=== PATIENT | male | born 1970 | race Caucasian/White ===

== ENCOUNTER 2021-12-01 12:33 | Emergency (ER) | payer SELFPAY ==
--- NOTE | ~2021-12-01 | CT_ITS ---
EXAMINATION: CT brain wo con DATE: 12/01/2021 13:27 INDICATION: Altered mental status. TECHNIQUE: Computed tomography (CT) of the head was performed without intravenous contrast. The mA wa s adjusted according to patient size. Iterative reconstruction technique was employed. The dose-lengt h product was 908.00 mGy-cm. COMPARISON: None FINDINGS: There is no intracranial hemorrhage, acute infarction, or abnormal intracranial mass lesion . The ventricles are normal in size. The orbits are normal. There is mild mucosal thickening in the p aranasal sinuses. There is a reconstruction plate with screws at left inferior orbital rim. The masto id air cells are normal. IMPRESSION: 1. Normal brain. Reviewed, dictated and finalized at location A. IMPRESSION: 1. Normal brain.
[2021-12-01 12:42] VITALS: BP 142/90; PULSE 92; RESP 20; TEMP 36.7; O2SAT 99
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
[2021-12-01 13:12] LABS: Basophils Absolute Auto 0.1 K/mm3 (0.0-0.1); Basophils Percent Auto 0.4 % (0.2-1.2); Eosinophils Absolute Auto 0.1 K/mm3 (0-0.3); Eosinophils Percent Auto 0.5 % (0-4.4); Hematocrit 37.7 % (42.0-52.0); Immature Granulocyte Absolute 0.02 K/mm3 (0.00-0.031); Immature Granulocyte Percent A 0.2 % (0-0.5); Lymphocytes Absolute Auto 1.57 K/mm3 (0.9-3.2); Lymphocytes Percent Auto 12.1 % (18.3-44.2); Mean Corpuscular HGB Conc 34.5 g/dl (32-36); Mean Corpuscular Volume 87.1 fl (80-100); Mean Platelet Volume 9.4 fl (7.4-10.4); Monocytes Absolute Auto 1.3 K/mm3 (0.1-0.6); Monocytes Percent Auto 10.1 % (2.6-8.5); Neutrophils Percent Auto 76.7 % (45.5-73.1); Platelet Count Result 278 k/mm3 (150-375); Red Blood Count 4.33 M/mm3 (4.6-6.20); Red Cell Distribution Width 12.3 % (11.5-14.5)
[2021-12-01 13:16] LABS: Appearance Urine Clear (Clear); Bilirubin Urine Negative (Negative); Blood Urine 2+ (Negative); Color Urine Yellow (Yellow); Glucose Urine UA Negative (Negative); Ketones Urine Negative (Negative); Leukocyte Esterase Ur Negative LEU/UL (Negative); Nitrate Urine Negative (Negative); Protein Urine 1+ mg/dL (Negative); Specific Grav Ur >= 1.030 (1.001-1.035); Urobilinogen Urine 0.2 mg/dL (<2.0); pH Urine 5.5 (5.0-9.0)
[2021-12-01 13:18] LABS: Add Urine Microscopic? YES; Mucus Urine Few /lpf; Squamous Epithelial Cell Urine Rare /hpf (Few)
[2021-12-01 13:22] LABS: Ethanol < 10 mg/dL (<10)
[2021-12-01 13:23] LABS: Alanine Aminotransferase 27 U/L (6-50); Albumin Level 4.9 g/dL (3.5-5.1); Alkaline Phosphatase 75 U/L (38-126); Anion Gap 13 mmol/L (8-16); Aspartate Amino Transferase 46 U/L (17-59); Bilirubin,Total 1.1 mg/dL (0.2-1.3); Blood Urea Nitrogen 38 mg/dL (9-20); Calcium 9.6 mg/dL (8.4-10.2); Carbon Dioxide 21 mmol/L (22-30); Chloride 101 mmol/L (98-107); Estimated Glomerular Filt Rate > 60; Glucose 132 mg/dL (65-110); Sodium 135 mmol/L (137-145)
[2021-12-01 13:42] LABS: Amphetamine Screen Urine Negative (Negative); Barbiturate Screen Urine Negative (Negative); Benzodiazepines Screen Urine Negative (Negative); Cannabinoid Screen Urine Negative (Negative); Cocaine Screen Urine Negative (Negative); Methadone Screen Urine Negative (Negative); Opiate Screen Urine Negative (Negative); Phencyclidine Screen Urine Negative (Negative)
[2021-12-01 15:19] LABS: SARS-CoV-2 RNA PCR Negative
[2021-12-01] MEDS: ACETAMINOPHEN 325 MG TABLET 650 MG PO (16:57)
[2021-12-01] MEDS: HALOPERIDOL LACTATE 5 MG/ML VIAL IM (18:10)
--- NOTE | 2021-12-01 18:55 | PC.NURSE ---
patient yelling and throwing things in room. Dr. Ken aware and new orders received
[2021-12-01] MEDS: LORazepam INJ (*CRX) 2 MG/ML VIAL IM (19:16)
--- NOTE | 2021-12-01 19:19 | PC.NURSE ---
Pt currently in ED Room 11 with security present outside room. Pt has thrown his pudding and other snacks, and removed all linens from his stretcher. Has been medicated by staff x 2 since 1800. Presently up and walking around inside ED Room. Per EDP Annia Ken, pt is involuntary and sitter is needed for elopement risk. Security utilized at this time.
--- NOTE | 2021-12-01 20:19 | PC.NURSE ---
Pt currently resting in ED15 with eyes closed. Resps even, nonlabored, regular. Appears in no distress.
--- NOTE | 2021-12-01 20:26 | PC.NURSE ---
received report from DASHA Benitez
[2021-12-02 04:09] VITALS: BP 103/59; PULSE 79; RESP 18; TEMP 36.3; O2SAT 96
--- NOTE | 2021-12-02 04:10 | PC.NURSE ---
assumed care of pt. Pt resting on stretcher. Vital signs taken, pt cooperative and asking for a drink. Pt pleasant and thankful for drink.
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
--- NOTE | 2021-12-02 09:05 | PC.NURSE ---
Aydee with Crisis called to let us know that they are actively looking for placement.
[2021-12-02] MEDS: NICOTINE (*PBKC) 21 MG PATCH 1 PATCH TRANSDERM (11:10)
--- NOTE | 2021-12-02 13:14 | PC.NURSE ---
[facility] has a bed and will accept once a covid result is faxed to them. This rn faxed covid result at this time and will await a bed assignment and accepting
[2021-12-02 14:11] VITALS: BP 119/71; PULSE 90; RESP 20; TEMP 36.2; O2SAT 99
== END 2021-12-02 16:38 ==
PROVIDERS: Emergency Medicine; Emergency Provider Emergency Medicine
DX: F29 Unspecified psychosis not due to a substance or known physiological condition (principal); Z20.822 Contact with and (suspected) exposure to COVID-19; Z87.820 Personal history of traumatic brain injury
CPT/HCPCS: 36415; 70450; 80053; 80307; 81001; 84443; 85025; 87086; 96372; 99285; A9270; C9803; J1630; J2060; U0003; U0005

== ENCOUNTER 2022-04-06 04:40 | Emergency (ER) | payer OTHER, SELFPAY ==
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
[2022-04-06 04:50] VITALS: BP 127/82; PULSE 111; RESP 16; TEMP 37.1; O2SAT 95
--- NOTE | 2022-04-06 06:13 | PC.NURSE ---
Pt approached triage desk requesting water. This RN educated pt on need to stay NPO until seen my provider. Pt states well im going to go find some. Ill be back for my xrays .
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
== END 2022-04-06 11:25 | disposition home or self-care (01) ==
PROVIDERS: Emergency Provider Physician Assistant
DX: S09.93XA Unspecified injury of face, initial encounter (principal); R51.9 Headache, unspecified; F31.9 Bipolar disorder, unspecified; Z87.820 Personal history of traumatic brain injury; Y04.2XXA Assault by strike against or bumped into by another person, initial encounter
CPT/HCPCS: 70450; 70486; 71046; 71110; 72125; 99284